=== PATIENT | male | born 1935 | race Caucasian/White ===

== ENCOUNTER 2017-09-03 09:43 | Emergency (ER) | payer OTHER, BC ==
[~2017-09-03] VITALS: Ht 175.3 cm; Wt 99.0 kg
[~2017-09-03 09:43] MED LIST: ACTOS30 MG PO; ADVIL,NUPRIN,M200 MG PO; ASPIRIN E.C.81 M1 PO; CRESTOR5 MG PO; Flexeril PO; GLUCOPHAGE1000 MG PO; JANUVIA100 MG PO; LOTREL 5/101 CAPSULE PO; Omega III EPA + DHA PO; Percocet 7.5/325,End PO; THERAGRAN1 TABLET PO
[2017-09-03] MEDS ORDERED: AMLODIPINE-VAL1 EACH PO (10:21)
[2017-09-03] MEDS ORDERED: PRAVASTATIN SOD40 MG PO (10:24)
[2017-09-03] MEDS ORDERED: NAPROSYN500 MG PO (10:36)
[2017-09-03 10:48] VITALS: BP 141/76
== END 2017-09-03 10:49 | disposition home or self-care (01) ==
LOC: EME 09:43
DX: M25.462 Effusion, left knee (principal); M25.562 Pain in left knee; X50.1XXA Overexertion from prolonged static or awkward postures, initial encounter; E11.9 Type 2 diabetes mellitus without complications; Z79.84 Long term (current) use of oral hypoglycemic drugs; I10 Essential (primary) hypertension; Z79.82 Long term (current) use of aspirin; Z85.820 Personal history of malignant melanoma of skin; Z87.891 Personal history of nicotine dependence
CPT/HCPCS: 73564; 99281; 99284